=== PATIENT | female | born 1985 | race Two or more races ===

== ENCOUNTER 2018-02-25 15:19 | Inpatient (IN) | payer OTHER ==
[~2018-02-25] VITALS: Ht 162.6 cm; Wt 81.2 kg
[2018-02-28] MEDS ORDERED: OBSTETRIX ONE1 EACH PO (22:26)
[2018-02-28] MEDS ORDERED: ZOLOFT100 MG PO (22:27)
[2018-02-28] MEDS ORDERED: FERROUS SULFAT325 MG PO (22:27)
== END 2018-03-03 15:53 | disposition home or self-care, planned readmission (81) | DRG 775 ==
LOC: LDR 02-28 21:54 → OB/GYN 03-01 01:46 → LDR 03-16 15:19
PROC: 10E0XZZ Delivery of Products of Conception, External Approach (ICD-10-PCS; principal; 2018-03-01)
PROC: 0DQR0ZZ Repair Anal Sphincter, Open Approach (ICD-10-PCS; 2018-03-01)
PROC: 3E033VJ Introduction of Other Hormone into Peripheral Vein, Percutaneous Approach (ICD-10-PCS; 2018-03-01)
PROC: 4A1HXCZ Monitoring of Products of Conception, Cardiac Rate, External Approach (ICD-10-PCS; 2018-03-01)
DX: O70.21 Third degree perineal laceration during delivery, IIIa (principal); Z3A.37 37 weeks gestation of pregnancy; Z37.0 Single live birth

== ENCOUNTER 2020-11-21 12:36 | Outpatient (CLI) | payer OTHER ==
[~2020-11-21 12:36] MED LIST: FERROUS SULFAT325 MG PO; OBSTETRIX ONE1 EACH PO; ZOLOFT100 MG PO
== END 2020-11-21 13:50 | disposition home or self-care (01) ==
LOC: NST 12:36
PROVIDERS: ATTEND Obstetrics & Gynecology Maternal & Fetal Medicine
DX: Z34.83 Encounter for supervision of other normal pregnancy, third trimester (principal)

== ENCOUNTER 2020-11-26 12:35 | Outpatient (CLI) | payer OTHER | END 2020-11-26 13:49 | disposition home or self-care (01) | LOC: NST 12:35 | PROVIDERS: ATTEND Obstetrics & Gynecology Maternal & Fetal Medicine | DX: Z34.83 Encounter for supervision of other normal pregnancy, third trimester (principal) ==

== ENCOUNTER 2020-11-28 10:28 | Outpatient (CLI) | payer OTHER | END 2020-11-28 11:46 | disposition home or self-care (01) | LOC: NST 10:28 | PROVIDERS: ATTEND Obstetrics & Gynecology Maternal & Fetal Medicine | DX: Z34.83 Encounter for supervision of other normal pregnancy, third trimester (principal) ==

== ENCOUNTER 2020-12-02 09:54 | Outpatient (CLI) | payer OTHER | END 2020-12-02 11:09 | disposition home or self-care (01) | LOC: NST 09:54 | PROVIDERS: ATTEND Obstetrics & Gynecology Maternal & Fetal Medicine | DX: Z34.83 Encounter for supervision of other normal pregnancy, third trimester (principal) ==

== ENCOUNTER 2020-12-04 10:56 | Outpatient (CLI) | payer OTHER | END 2020-12-04 11:35 | disposition home or self-care (01) | LOC: NST 10:56 | PROVIDERS: ATTEND Obstetrics & Gynecology Maternal & Fetal Medicine | DX: Z34.83 Encounter for supervision of other normal pregnancy, third trimester (principal) ==

== ENCOUNTER 2020-12-05 07:44 | Outpatient (CLI) | payer OTHER | END 2020-12-05 10:42 | disposition home or self-care (01) | LOC: NST 07:44 | PROVIDERS: ATTEND Obstetrics & Gynecology Maternal & Fetal Medicine | DX: Z34.83 Encounter for supervision of other normal pregnancy, third trimester (principal) ==

== ENCOUNTER 2020-12-06 06:57 | Inpatient (IN) | payer OTHER ==
[~2020-12-06] VITALS: Ht 162.6 cm; Wt 81.6 kg
== END 2020-12-08 12:32 | disposition home or self-care (01) | DRG 807 ==
LOC: OB/GYN 06:57 → LDR 06:57 → OB/GYN 15:53
PROVIDERS: ADMIT Obstetrics & Gynecology Maternal & Fetal Medicine; ATTEND Obstetrics & Gynecology Maternal & Fetal Medicine
PROC: 10E0XZZ Delivery of Products of Conception, External Approach (ICD-10-PCS; principal; 2020-12-06)
PROC: 0HQ9XZZ Repair Perineum Skin, External Approach (ICD-10-PCS; 2020-12-06)
PROC: 10907ZC Drainage of Amniotic Fluid, Therapeutic from Products of Conception, Via Natural or Artificial Opening (ICD-10-PCS; 2020-12-06)
PROC: 3E033VJ Introduction of Other Hormone into Peripheral Vein, Percutaneous Approach (ICD-10-PCS; 2020-12-06)
PROC: 4A1HXFZ Monitoring of Products of Conception, Cardiac Rhythm, External Approach (ICD-10-PCS; 2020-12-06)
DX: O70.0 First degree perineal laceration during delivery (principal); O69.89X0 Labor and delivery complicated by other cord complications, not applicable or unspecified; Z37.0 Single live birth; Z3A.37 37 weeks gestation of pregnancy; Z20.822 Contact with and (suspected) exposure to COVID-19